=== PATIENT | male | born 1990 | race Caucasian/White ===

== ENCOUNTER 2019-11-11 17:29 | Emergency (ER) | payer OTHER ==
[~2019-11-11] VITALS: Ht 177.8 cm; Wt 81.7 kg
[2019-11-11] MEDS ORDERED: ADVIL200 MG PO (17:50)
[2019-11-11] MEDS ORDERED: NORCO 7.5-3251 EACH PO (18:51)
== END 2019-11-11 19:05 | disposition home or self-care (01) ==
LOC: ED 17:29
DX: S86.012A Strain of left Achilles tendon, initial encounter (principal); S86.112A Strain of other muscle(s) and tendon(s) of posterior muscle group at lower leg level, left leg, initial encounter; X58.XXXA Exposure to other specified factors, initial encounter
CPT/HCPCS: 73610; 99283-25; A9270

== ENCOUNTER 2023-04-08 19:56 | Emergency (ER) | payer OTHER ==
[~2023-04-08] VITALS: Ht 177.8 cm; Wt 81.7 kg
[~2023-04-08 19:56] MED LIST: ADVIL200 MG PO; HYDROCODON-ACE1 EA11 PO; NORCO 7.5-3251 EACH PO
[2023-04-08 22:00] VITALS: BP 146/78
--- NOTE | 2023-04-09 23:58 | EKG ---
[facility] [address] [place], [place] [address] Signed Atrial flutter with variable AV block Abnormal ECG No previous ECGs available Confirmed by EDNA YATES MD ([id number] on 04/09/2023 11:58:46 PM Electronically Signed By: EDNA YATES MD 04/09/23 2358 PATIENT NAME: RADHA PRICE Electrocardiogram DATE OF : 86 PHYSICIAN: EDNA YATES MD REPORT #: [id number] REPORT IS CONFIDENTIAL AND NOT TO BE RELEASED WITHOUT AUTHORIZATION
== END 2023-04-08 22:00 | disposition home or self-care (01) ==
LOC: ED 19:56
DX: R07.9 Chest pain, unspecified (principal); F12.10 Cannabis abuse, uncomplicated; Z87.891 Personal history of nicotine dependence; Z79.899 Other long term (current) drug therapy
CPT/HCPCS: 36415; 71045; 80053; 84484; 85025; J7030